=== PATIENT | male | born 1975 | race Caucasian/White ===

== ENCOUNTER 2018-08-10 04:27 | Emergency (ER) | payer OTHER ==
[~2018-08-10] VITALS: Ht 170.2 cm; Wt 84.1 kg
[2018-08-10 08:38] LABS: AMPHET/METH SCREEN,URINE POSITIVE (NEGATIVE); BARBITURATE SCREEN, URINE NEGATIVE (NEGATIVE); BENZODIAZEPINES SCREEN,URINE NEGATIVE (NEGATIVE); CANNABINOID SCREEN,URINE POSITIVE (NEGATIVE); COCAINE SCREEN,URINE NEGATIVE (NEGATIVE); METHADONE SCREEN, URINE NEGATIVE (NEGATIVE); OPIATE SCREEN,URINE NEGATIVE (NEGATIVE)
[2018-08-10 08:39] LABS: PHENCYCLIDINE SCREEN,URINE NEGATIVE (NEGATIVE)
[2018-08-10 09:24] VITALS: BP 140/89
== END 2018-08-10 09:30 | disposition home or self-care (01) ==
LOC: EMS 04:28
DX: F15.10 Other stimulant abuse, uncomplicated (principal); F12.90 Cannabis use, unspecified, uncomplicated
CPT/HCPCS: 36415; 80307; 99283; G0480